=== PATIENT | male | born 1985 | race Caucasian/White ===

== ENCOUNTER 2021-01-10 19:11 | Inpatient (IN) | payer OTHER, MEDICAID, SELFPAY ==
[2021-01-10 19:16] VITALS: BP 130/91; PULSE 97; RESP 14; TEMP 37.2; O2SAT 99
--- NOTE | 2021-01-10 19:45 | ED.FEVER ---
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 He said when he was previously diagnosed with thrush he was treated with nystatin symptoms resolved and then he started having right-sided neck swelling which has gotten worse today. He was started on Augmentin yesterday he has taken a total of 3 doses He has had fevers chills and sweats. He now is having some difficulty swallowing which brought him to the emergency department today but does not appear in any acute respiratory distress. He denies any known history of each eye the stating that he has been tested for that in the past and been negative. He does have some poor dentition and thinks that maybe there was an infection there. He has had fever and chills ongoing for the last few days as well. Related Data Home Medications Medication Instructions Recorded Confirmed amoxicillin 875 mg-potassium 1 tab PO Q12HR 01/10/21 01/10/21 clavulanate 125 mg tablet buprenorphine 8 mg-naloxone 2 mg 1 tab SUBLINGUAL BID 01/10/21 01/10/21 sublingual tablet Allergies Allergy/AdvReac Type Severity Reaction Status Date / Time No Known Drug Allergies Allergy Verified 01/10/21 19:20 Review of Systems Review of Systems Narrative: GENERAL: Denies chills, fatigue, malaise, fever, sweats, travel HEENT: See HPI RESPIRATORY: Denies dyspnea, cough, wheezing, hemoptysis, sputum. CARDIOVASCULAR: Denies chest pain, palpitations, orthopnea, edema GASTROINTESTINAL: Denies nausea, vomiting, abdominal pain, diarrhea, constipation, melena. : Denies dysuria, frequency, incontinence, hematuria, urinary retention, flank pain. MUSCULOSKELETAL: Denies weakness, joint pain, or bony pain SKIN: No rash, no erythema, no pruritus NEUROLOGIC: Denies weakness, dizziness, headache, numbness, change in speech, confusion PSYCHIATRIC: No concerning psychosocial issues. 12 point review of systems is negative except for those stated above and HPI Patient History Medical History Broken teeth Dental caries History of intravenous drug use in remission History of tobacco abuse Surgical History (Updated 01/11/21 @ 01:23 [facility] History of appendectomy Family History (Updated 01/11/21 @ 01:24 by ALIS FranklinANTHONY) Other Adopted Family history unknown Social History household members: spouse Smoking Status: Former smoker Smoking Status: Former smoker alcohol intake frequency: 0-2 drinks per day Substance Use Type: former substance user Exam Initial Vital Signs Initial Vital Signs: Vital Signs Temperature 98.9 F 01/10/21 19:16 Pulse Rate 97 H 01/10/21 19:16 Respiratory Rate 14 01/10/21 19:16 Blood Pressure 130/91 H 01/10/21 19:16 Pulse Oximetry 99 01/10/21 19:16 GENERAL: Alert thin 35-year-old male no acute distress HEENT: Head atraumatic,EOMI, pupils reactive, face symmetric, moist mucous membranes PHARYNX: No erythema no tonsillar swelling or exudate managing secretions. He does have over right neck swelling no fluctuation. cervical lymphadenopathy is present CARDIOVASCULAR: Regular rate and rhythm without murmurs, rubs or gallops. RESPIRATORY: Breath sounds equal bilaterally, no wheezes rales or rhonchi. ABDOMEN: Soft, nontender. Normoactive bowel sounds all 4 quadrants. No guarding or rebound. EXTREMITIES: Normal range of motion, no clubbing or edema. Neurovascularly intact NEUROLOGICAL: Alert and oriented x4.Normal gait and speech. SKIN: Warm, dry, no laceration, no petechiae, no rashes or lesions. Course Orders Ordered: ED Orders 01/10/21 22:43 Urine Microscopic Stat Acetaminophen (Acetaminophen 325 Mg Tablet) 650 mg PO Q6HR PRN PRN Reason: Fever/Mild Pain (1-3) Al Hydrox/Mg Hydrox/Simethicone (Mag Hydrox/Alum/Simeth 30 Ml Udc) 30 ml PO Q6HR PRN PRN Reason: Dyspepsia Buprenorphine/Naloxone (Buprenorphine/Naloxone 8mg/2mg 1 Tab) 1 tab SL BID THERESA Calcium Carbonate (Calcium Carbonate 500 Mg Tab) 1,000 mg PO Q4HR PRN PRN Reason: Dyspepsia Heparin Sodium (Porcine) (Heparin 5,000 Unit/Ml Vial) 5,000 unit SUBCUT BID THERESA Lactated Ringer's (Lactated Ringers) 1,000 mls @ 100 mls/hr IV CONT THERESA Last Admin: 01/11/21 00:50 Dose: 100 mls/hr Documented by: SHARON Piperacillin Sod/Tazobactam (Sod 3.375 gm/ Sodium Chloride) 100 mls @ 25 mls/hr IV Q8H THERESA Vancomycin HCl (Vancomycin) 1,000 mg in 200 mls @ 200 mls/hr IV Q12H THERESA Ketorolac Tromethamine (Ketorolac 10 Mg Tablet) 10 mg PO Q6HR PRN PRN Reason: Pain, Moderate (4-6) Stop: 01/15/21 23:47 Last Admin: 01/11/21 01:02 Dose: 10 mg Documented by: SHARON Naloxone HCl (Naloxone 0.4 Mg/Ml Vial) 0.2 mg IV Q2MIN PRN PRN Reason: Opiate Reversal Ondansetron HCl (Ondansetron 4 Mg/2 Ml Inj) 4 mg IV Q8HR PRN PRN Reason: Nausea And Vomiting Discontinued Medications Buprenorphine/Naloxone (Buprenorphine/Naloxone 8mg/2mg 1 Tab) 1 tab SL NOW ONE Stop: 01/11/21 01:02 Last Admin: 01/11/21 01:08 Dose: 1 tab Documented by: SHARON Sodium Chloride (Normal Saline 0.9%) 1,000 mls @ 1,000 mls/hr IV BOLUS ONE Stop: 01/10/21 20:22 Last Infusion: 01/10/21 21:19 Dose: 0 mls/hr Documented by: Admin: 01/10/21 19:57 Dose: 1,000 mls/hr Documented by: EMLIE Ampicillin Sodium/Sulbactam (Sodium 3 gm/ Sodium Chloride) 100 mls @ 100 mls/hr IV NOW ONE Stop: 01/10/21 20:30 Last Infusion: 01/10/21 21:43 Dose: 0 mls/hr Documented by: Admin: 01/10/21 20:38 Dose: 100 mls/hr Documented by: EMILE Vancomycin HCl (Vancomycin) 750 mg in 150 mls @ 150 mls/hr IV NOW ONE Stop: 01/10/21 22:43 Last Infusion: 01/11/21 00:21 Dose: 0 mls/hr Documented by: Admin: 01/10/21 22:08 Dose: 150 mls/hr Documented by: LISBETH Piperacillin Sod/Tazobactam (Sod 3.375 gm/ Sodium Chloride) 100 mls @ 25 mls/hr IV Q8H [facility] Piperacillin Sod/Tazobactam (Sod 4.5 gm/ Sodium Chloride) 100 mls @ 200 mls/hr IV 0400 ONE Stop: 01/11/21 04:29 Last Admin: 01/11/21 04:23 Dose: 200 mls/hr Documented by: SHARON Vancomycin HCl (Vancomycin) 750 mg in 150 mls @ 150 mls/hr IV NOW ONE Stop: 01/11/21 01:59 Last Admin: 01/11/21 00:57 Dose: Not Given Documented by: SHARON Ketorolac Tromethamine (Ketorolac 30 Mg/Ml Vial) 15 mg IV NOW ONE Stop: 01/10/21 19:47 Last Admin: 01/10/21 19:57 Dose: 15 mg Documented by: EMILE Nystatin (Nystatin Susp 500,000 Unit/5 Ml Udc) 500,000 unit PO QID THERESA Last Admin: 01/11/21 00:58 Dose: Not Given Documented by: SHARON Vancomycin HCl (Vancomycin Per Pharmacy) 1 request MISC NOW ONE Stop: 01/10/21 23:59 Last Admin: 01/11/21 00:58 Dose: Not Given Documented by: SHARON Vital Signs Vital signs: Vital Signs - 8 hr 01/10/21 19:16 Temperature 98.9 F Pulse Rate 97 H Respiratory Rate 14 Blood Pressure 130/91 H Pulse Oximetry 99 MDM - Fever Lab Data Result diagrams: 01/10/21 19:40 01/10/21 19:40 Labs: Lab Results 01/10/21 01/10/21 01/10/21 Range/Units 19:40 19:40 19:40 WBC 19.8 H (4.5-11.0) X10^3/uL RBC 4.69 (4.5-5.9) X10^6/uL Hgb 13.3 L (13.5-17.5) g/dL Hct 40.4 L (41-53) % MCV 86.1 (80-100) fL MCH 28.3 (26-34) PG MCHC 32.9 (30-36) % RDW 12.7 (11.6-14.8) % Plt Count 303 (150-400) X10^3/uL Neut % (Auto) 65.6 (50-75) % Lymph % (Auto) 15.1 L (25-40) % [place] % (Auto) 17.5 H (3-14) % Eos % (Auto) 1.2 L (2-4) % Baso % (Auto) 0.6 (0-2) % Neut # (Auto) 72007 H (1509-8528) /uL Lymph # (Auto) 3000 (4040-7994) /uL [place] # (Auto) 3500 H (0-900) /uL Eos # (Auto) 200 (0-450) /uL Baso # (Auto) 100 (0-100) /uL Sodium 137 (137-145) mmol/L Potassium 4.0 (3.4-5.1) mmol/L Chloride 101 (98-107) mmol/L Carbon Dioxide 29 (22-32) mmol/L BUN 17 (9-20) mg/dL Creatinine 0.79 (0.66-1.25) mg/dL Estimated GFR > 60.0 (>60) mL/min BUN/Creatinine Ratio 21.5 (6-22) Glucose 100 (70-100) mg/dL Lactate 1.1 (0.7-2.1) mmol/L Calcium 8.9 (8.4-10.2) mg/dL Total Bilirubin 0.7 (0.2-1.3) mg/dL AST 31 (17-59) IU/L ALT 47 (<50) IU/L Alkaline Phosphatase 76 (38-126) U/L Total Protein 8.5 H (6.3-8.2) g/dL Albumin 3.9 (3.5-5.0) g/dL Globulin 4.6 H (1.7-4.1) g/dL Albumin/Globulin Ratio 0.8 L (1.0-2.8) Lipase 21 L (23-300) U/L Procalcitonin 0.10 (<0.5) ng/mL Urine RBC (0-5/HPF) Urine WBC (0-5/HPF) Urine Bacteria (None) Ur Culture Indicated? SARS-CoV-2 (PCR) (Negative) HIV 1&2 Ab/P24 Ag 4thGn (NEGATIVE) 01/10/21 01/10/21 01/10/21 Range/Units 19:40 19:45 22:43 WBC (4.5-11.0) X10^3/uL RBC (4.5-5.9) X10^6/uL Hgb (13.5-17.5) g/dL Hct (41-53) % MCV (80-100) fL MCH (26-34) PG MCHC (30-36) % RDW (11.6-14.8) % Plt Count (150-400) X10^3/uL Neut % (Auto) (50-75) % Lymph % (Auto) (25-40) % [place] % (Auto) (3-14) % Eos % (Auto) (2-4) % Baso % (Auto) (0-2) % Neut # (Auto) (4110-1769) /uL Lymph # (Auto) (4962-1054) /uL [place] # (Auto) (0-900) /uL Eos # (Auto) (0-450) /uL Baso # (Auto) (0-100) /uL Sodium (137-145) mmol/L Potassium (3.4-5.1) mmol/L Chloride (98-107) mmol/L Carbon Dioxide (22-32) mmol/L BUN (9-20) mg/dL Creatinine (0.66-1.25) mg/dL Estimated GFR (>60) mL/min BUN/Creatinine Ratio (6-22) Glucose (70-100) mg/dL Lactate (0.7-2.1) mmol/L Calcium (8.4-10.2) mg/dL Total Bilirubin (0.2-1.3) mg/dL AST (17-59) IU/L ALT (<50) IU/L Alkaline Phosphatase (38-126) U/L Total Protein (6.3-8.2) g/dL Albumin (3.5-5.0) g/dL Globulin (1.7-4.1) g/dL Albumin/Globulin Ratio (1.0-2.8) Lipase (23-300) U/L Procalcitonin (<0.5) ng/mL Urine RBC None seen (0-5/HPF) Urine WBC None seen (0-5/HPF) Urine Bacteria None seen (None) Ur Culture Indicated? Cult not indicated SARS-CoV-2 (PCR) Negative (Negative) HIV 1&2 Ab/P24 Ag 4thGn Negative (NEGATIVE) Urine Dip Bedside Urine Glucose Negative Bedside Urine Bilirubin - Negative Bedside Urine Ketone - Negative Urine Specific [place] 1.005 Bedside Urine Occult Blood - Negative Bedside Urine pH 6.5 Bedside Urine Protein + 30 Bedside Urine Urobilinogen 2+ 4mg Bedside Urine Nitrite - Negative Bedside Urine Leukocytes - Negative Esterase Imaging Data CT soft tissue neck: Radiologist's Impression: PROCEDURE:? CT SOFT TISSUE NECK W CON ? INDICATIONS:? right sided neck swelling ? TECHNIQUE:? After the administration of intravenous contrast, 3.0 mm axial sections acquired from the sella to the aortic arch.? Additional oblique axial 3.0 mm sections acquired through the pharynx.? 3 mm thick coronal and sagittal reformats were generated.? For radiation dose reduction, the following was used:? automated exposure control.? ? COMPARISON:? None. ? FINDINGS:? Image quality:? Excellent.? ? Lymph nodes:? Reactive right sided level II and III cervical lymph node enlargement is present. ? Vessels:? Visualized vasculature appears patent.? ? Neck spaces:? There is submucosal low density within the right aspect of the oropharynx including the right tonsillar pillar hypopharynx, extending into the supraglottic airway. ?There is associated effacement of the right piriform sinus with involvement of the right false vocal cord.? There is effacement of the right lateral aspect of the vallecula.? There is associated moderate narrowing of the oropharyngeal and hypopharyngeal airway.? There is a peripherally enhancing fluid collection within the right superior neck, deep to the anterior aspect of the right sternocleidomastoid muscle, measuring roughly 25 mm, at the lateral aspect of the proximal external carotid artery.? This mass demonstrates extrinsic compression and severe narrowing of the adjacent internal jugular vein at its posterior aspect.? Moderate surrounding ill-defined T2 signal elevation is present, indicating cellulitis.? There is enlargement of the right sternocleidomastoid muscle. ? Glands:? Anterior deviation of the right submandibular gland secondary to the abscess at its posterior aspect.? The parotid and submandibular glands otherwise appear normal.? Thyroid gland is grossly unremarkable.? ? Miscellaneous:? Visualized brain and orbits appear normal.? Lung apices appear clear.? Superficial soft tissues appear normal. ? Bones:? No suspicious bony lesions.? Visualized sinuses and mastoids appear unremarkable. ? ? ? IMPRESSION:? 1. Right upper cervical abscess with surrounding cellulitis and involvement of the right sternocleidomastoid muscle.? There is extrinsic compression and severe narrowing of the adjacent right internal jugular vein. 2. Submucosal edema/cellulitis involving the right oropharynx, hypopharynx, and false vocal cord, with associated vallecular and piriform sinus involvement.? Moderate narrowing of the sameer pharyngeal and hypopharyngeal airway. ? ? ? Dictated by: Rosemary Moya M.D. on 01/10/2021 at 21:11 ? ? ECG Data Interpretation: Sinus rhythm rate 77 MN interval 152 QRS [address] changes MDM Narrative Medical decision making narrative: Patient obvious right-sided neck swelling but he does appear to be managing his secretions an airway seems to be intact. He does have leukocytosis of almost 20,000 but vitals are within normal limits and is not septic. 2154 Dr. Mac, ENT updated outpatient symptoms test results and CT scan report. Recommend it be drained if needed and he likely needs furtherantibiotics. Suggest patient may possibly doing it as an outpatient. He is happy to consult if needed. Patient does have significant neck abscess involving sternocleidomastoid and pushing on in jugular. At this time patient needs at least observation and IV antibiotics Terrence JIMENEZ updated on patient's symptoms test results ENT recommendations and happily accepts I do question patient's recent thrush infection and history of IVDA possible HIV, although patient denies. Discharge Plan Departure Patient Disposition: Admitted as Observation Clinical Impression: Cellulitis and abscess of neck Admit Date/Time: 01/10/21 23:36 Admit Provider: Yuliana Ocampo
--- NOTE | 2021-01-10 19:46 | DI.CT.S_ITS ---
PROCEDURE: CT SOFT TISSUE NECK W CON INDICATIONS: right sided neck swelling TECHNIQUE: After the administration of intravenous contrast, 3.0 mm axial sections acquired from the sella to the aortic arch. Additional oblique axial 3.0 mm sections acquired through the pharynx. 3 mm thick coronal and sagittal reformats were generated. For radiation dose reduction, the following was used: automated exposure control. COMPARISON: None. FINDINGS: Image quality: Excellent. Lymph nodes: Reactive right sided level II and III cervical lymph node enlargement is present. Vessels: Visualized vasculature appears patent. Neck spaces: There is submucosal low density within the right aspect of the oropharynx including the right tonsillar pillar hypopharynx, extending into the supraglottic airway. There is associated effacement of the right piriform sinus with involvement of the right false vocal cord. There is effacement of the right lateral aspect of the vallecula. There is associated moderate narrowing of the oropharyngeal and hypopharyngeal airway. There is a peripherally enhancing fluid collection within the right superior neck, deep to the anterior aspect of the right sternocleidomastoid muscle, measuring roughly 25 mm, at the lateral aspect of the proximal external carotid artery. This mass demonstrates extrinsic compression and severe narrowing of the adjacent internal jugular vein at its posterior aspect. Moderate surrounding ill-defined T2 signal elevation is present, indicating cellulitis. There is enlargement of the right sternocleidomastoid muscle. Glands: Anterior deviation of the right submandibular gland secondary to the abscess at its posterior aspect. The parotid and submandibular glands otherwise appear normal. Thyroid gland is grossly unremarkable. Miscellaneous: Visualized brain and orbits appear normal. Lung apices appear clear. Superficial soft tissues appear normal. Bones: No suspicious bony lesions. Visualized sinuses and mastoids appear unremarkable. IMPRESSION: 1. Right upper cervical abscess with surrounding cellulitis and involvement of the right sternocleidomastoid muscle. There is extrinsic compression and severe narrowing of the adjacent right internal jugular vein. 2. Submucosal edema/cellulitis involving the right oropharynx, hypopharynx, and false vocal cord, with associated vallecular and piriform sinus involvement. Moderate narrowing of the sameer pharyngeal and hypopharyngeal airway. Dictated by: Rosemary Moya M.D. on 01/10/2021 at 21:11 Approved by: Rosemary Moya M.D. on 01/10/2021 at 21:16
[2021-01-10] MEDS: KETOROLAC 30 MG/ML VIAL 15 MG IV (19:57)
[2021-01-10] MEDS: SODIUM CHLORIDE 0.9% 1,000 ML 1000 ML IV (19:57)
[2021-01-10 20:06] LABS: Add Manual Diff / Slide Review NO; Basophils Absolute Auto 100 /uL (0-100); Basophils Percent Auto 0.6 % (0-2); Eosinophils Absolute Auto 200 /uL (0-450); Eosinophils Percent Auto 1.2 % (2-4); Hematocrit 40.4 % (41-53); Hemoglobin 13.3 g/dL (13.5-17.5); Lymphocytes Absolute Auto 3000 /uL (1100-4500); Lymphocytes Percent Auto 15.1 % (25-40); Mean Corpuscular HGB Conc 32.9 % (30-36); Mean Corpuscular Hemoglobin 28.3 PG (26-34); Mean Corpuscular Volume 86.1 fL (80-100); Monocytes Absolute Auto 3500 /uL (0-900); Monocytes Percent Auto 17.5 % (3-14); Neutrophils Absolute Auto 13000 /uL (1500-7000); Neutrophils Percent Auto 65.6 % (50-75); Platelet Count 303 X10^3/uL (150-400); Red Blood Cell Count 4.69 X10^6/uL (4.5-5.9); Red Cell Distribution Width 12.7 % (11.6-14.8); White Blood Cell Count 19.8 X10^3/uL (4.5-11.0)
[2021-01-10 20:19] LABS: Lactate (Lactic Acid) 1.1 mmol/L (0.7-2.1)
[2021-01-10 20:22] LABS: Alanine Aminotransferase 47 IU/L (<50); Albumin 3.9 g/dL (3.5-5.0); Albumin Globulin Ratio 0.8 (1.0-2.8); Alkaline Phosphatase 76 U/L (38-126); Aspartate Aminotransferase 31 IU/L (17-59); BUN Creatinine Ratio 21.5 (6-22); Bilirubin Total 0.7 mg/dL (0.2-1.3); Blood Urea Nitrogen 17 mg/dL (9-20); Calcium 8.9 mg/dL (8.4-10.2); Carbon Dioxide 29 mmol/L (22-32); Chloride 101 mmol/L (98-107); Estimated Glomerular Filt Rate > 60.0 mL/min (>60); Globulin 4.6 g/dL (1.7-4.1); Glucose 100 mg/dL (70-100); HEMOLYSIS < 15 (0-50); Lipase 21 U/L (23-300); Sodium 137 mmol/L (137-145); Total Protein 8.5 g/dL (6.3-8.2)
[2021-01-10] MEDS: AMPICILLIN/SULBACTAM 3 GM 3 GM in SODIUM CHLORIDE 0.9% 100 ML IV (20:38)
[2021-01-10 21:47] LABS: COVID19 - ADMIT (NP swab/PCR) Negative (Negative)
[2021-01-10] MEDS: VANCOMYCIN 750 MG/150 ML PIGGYBACK 150 MG IV (22:08)
[2021-01-10 23:00] LABS: Bacteria Urine None Seen; RBC Urine None Seen (0-5/HPF); WBC Urine None Seen (0-5/HPF)
[2021-01-10 23:42] VITALS: O2SAT 99
[2021-01-10 23:53] LABS: Culture Indicated Urine Cult Not Indicated
[2021-01-11] VITALS (13 sets, daily range): BP systolic 107–124; BP diastolic 50–67; PULSE 64–75; RESP 14–18; TEMP 36.6–37.4; O2SAT 97–99; BMI 19.3
--- NOTE | 2021-01-11 00:02 | PM.HP.1 ---
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 Patient reports that the right side of his neck began becoming sore approximately 1 week ago and then 2 days ago it ?blew up. He had a recent diagnosis of thrush he was treated with nystatin symptoms resolved and it resolved. When the [facility] ? He had fevers chills and sweats through the night, last night but none at this time.? He currently reports pressure and pain discomfort to his right side of the jaw, and pressure on the outer canthus of the right eye, and some difficulty swallowing but does not appear to be in any respiratory distress at this time. Patient reports poor dentition and has multiple broken teeth on the lower right side of the jaw. He also has had issues with a a submandibular abscess prior on the left-hand side related to dental infections, but nothing this bad. Patient denies Chest pain, shortness of breath, abdominal pain, nausea, vomiting, pain with eye movement or pain /pressure behind the eyes. Patient did stop smoking 3 years ago and continues to use nicotine salt packages orally. Patient denies HIV infection, or immunocompromise disease. Patient's vitals are stable, in no respiratorydistress upon admit afebrile BP 130/91, HR 97, R 14, O2 saturation 99% on room air. Patient does have an elevated WBC 19.8, neutrophils 1300, HGB 13.3, HCT 40.4. Patient's chemistries, liver enzymes, U/A, lipase and procalcitonin are all within normal limits. CT of the soft tissue the neck demonstrated right upper cervical abscess with surrounding cellulitis and involvement of the right sternocleidomastoid muscle.? There is extrinsic compression and severe narrowing of the adjacent right internal jugular vein. And submucosal edema/cellulitis involving the right oropharynx, hypopharynx, and false vocal cord, with associated vallecular and piriform sinus involvement.? Moderate narrowing of the oropharyngeal and hypopharyngeal airway. Patient admitted for right neck abscess with cellulitis, and submucosal edema with risk of airway compromise. Patient History Medical History Broken teeth Dental caries History of intravenous drug use in remission History of tobacco abuse Surgical History (Updated 01/11/21 @ 01:23 by ALIS Franklin-ANTHONY) History of appendectomy Family & Social History Family History (Updated 01/11/21 @ 01:24 by PAIGE Franklin) Other Adopted Family history unknown Safety & Behavioral: Feels Safe in Current Yes, patient lives with his on [address] and works at the local [employer]. Environment Been Physically Hurt or No Threatened By a Person Tobacco & Substance use: Smoking Status Former smoker Quit 2018 alcohol intake frequency 0-2 drinks per day Substance Use Type former substance user IV heroin- quit 2019 Meds Home Medications and Allergies Home Medications Medication Instructions Recorded Confirmed Type amoxicillin 875 mg-potassium 1 tab PO Q12HR 01/10/21 01/10/21 History clavulanate 125 mg tablet buprenorphine 8 mg-naloxone 2 mg 1 tab SUBLINGUAL BID 01/10/21 01/10/21 History sublingual tablet Allergies Allergy/AdvReac Type Severity Reaction Status Date / Time No Known Drug Allergies Allergy Verified 01/10/21 19:20 Review of Systems Review of Systems Narrative: All 12 point systems reviewed with the patient and are negative except otherwise documented. Exam Vital Signs (past 8 hours): - 01/10/21 19:16 Temperature 98.9 F Pulse Rate 97 H Respiratory Rate 14 Blood Pressure 130/91 H Pulse Oximetry 99 Oxygen Delivery Method Room Air Narrative Exam Narrative: General: Patient is a well-developed, well-nourished fit male, pleasant in no distress at this time. HEENT: Normocephalic, atraumatic, extraocular muscles intact, oral pharynx is clear and mucous membranes are moist without exudate. Neck: No erythema no tonsillar swelling. managing secretions.? He does have over right neck swelling, no fluctuation, positive right pre-auricular cervical lymphadenopathy, area is firm raised, tender to plapation, and warm to touch, without postauricular adenopathy. Patient's speech is clear and on and P dated, able to swallow and breathe without any distress. Nurse to outline area of inflammation to monitor distribution and progression. Chest: Normal AP diameter and contour without kyphoscoliosis, no nasal flaring, retractions, or tachypneic labored Lungs: Auscultation of all lung hanson are clear without adventitious sounds, wheezes, rhonchi, or rales. Cardio: S1 & S2 with regular rate and rhythm without murmur, rubs, or gallops, no carotid bruit, no cardiac pulsations present. Abdomen: Soft nontender, negative for organomegaly, or masses. Bowel sounds are present in all 4 quadrants without guarding or rebound, no CVA tenderness. Musculoskeletal: Muscle strength and tone are equal within normal limits, no deformity, crepitus, effusions, cyanosis, clubbing or edema present. Full range of motion intact radial and pedal pulses are normal. Skin: Warm dry and intact without rashes, ulcerations or petechiae. Neuro: Alert and orientated x3, strength is +5/5 in all extremities, sensation to touch intact, no gross deficits noted of cranial nerves. Psych: Patient has a well-kept appearance, appropriate affect, mental status attitude thought context and judgment are appropriate for age. Objective Labs Result Diagrams: 01/10/21 19:40 01/10/21 19:40 Labs: Laboratory Results - last 24 hr 01/10/21 01/10/21 01/10/21 19:40 19:40 19:40 WBC 19.8 H RBC 4.69 Hgb 13.3 L Hct 40.4 L MCV 86.1 MCH 28.3 MCHC 32.9 RDW 12.7 Plt Count 303 Neut % (Auto) 65.6 Lymph % (Auto) 15.1 L [place] % (Auto) 17.5 H Eos % (Auto) 1.2 L Baso % (Auto) 0.6 Neut # (Auto) 95657 H Lymph # (Auto) 3000 [place] # (Auto) 3500 H Eos # (Auto) 200 Baso # (Auto) 100 Sodium 137 Potassium 4.0 Chloride 101 Carbon Dioxide 29 BUN 17 Creatinine 0.79 Estimated GFR > 60.0 BUN/Creatinine Ratio 21.5 Glucose 100 Lactate 1.1 Calcium 8.9 Total Bilirubin 0.7 AST 31 ALT 47 Alkaline Phosphatase 76 Total Protein 8.5 H Albumin 3.9 Globulin 4.6 H Albumin/Globulin Ratio 0.8 L Lipase 21 L Procalcitonin 0.10 Urine RBC Urine WBC Urine Bacteria Ur Culture Indicated? SARS-CoV-2 (PCR) 01/10/21 01/10/21 19:45 22:43 WBC RBC Hgb Hct MCV MCH MCHC RDW Plt Count Neut % (Auto) Lymph % (Auto) [place] % (Auto) Eos % (Auto) Baso % (Auto) Neut # (Auto) Lymph # (Auto) [place] # (Auto) Eos # (Auto) Baso # (Auto) Sodium Potassium Chloride Carbon Dioxide BUN Creatinine Estimated GFR BUN/Creatinine Ratio Glucose Lactate Calcium Total Bilirubin AST ALT Alkaline Phosphatase Total Protein Albumin Globulin Albumin/Globulin Ratio Lipase Procalcitonin Urine RBC None seen Urine WBC None seen Urine Bacteria None seen Ur Culture Indicated? Cult not indicated SARS-CoV-2 (PCR) Negative Assessment & Plan Assessment & Plan narrative: Patient is a 35-year-old male with a history IV drug use, severe dental caries, brooken teeth, thrush, and tobacco abuse in remission x3 years, who presents with right-sided neck cervical abscess with surrounding cellulitis and a submucosal edema. 1. Neck right cervical abscess with surrounding cellulitis and submucosal edema, leukocytosis, acute, present on admission -WBC 19.8, neutrophils 1300, initial procalcitonin WNL -patient to be admitted for 24 hours of IV fluids and antibiotics if not improving request ENT consult. - ENT was consulted in ED by Dr. Barajas -no recommendations at this time but will consult if needed. -rule out type of infectious organism cover for Klebsiella pneumonia a.m., Staph coccus aureus, MRSA, Gram-negative Paxil a, and anaerobes. -blood cultures pending. -ordered vancomycin per pharmacy and Zosyn 3.375 q.8 hours -monitor for hyponatremia elevated CPK or AST -wells criteria score: 0, Sofa score: 0 -patient for observation, bedside swallow, vital signs q.4 hours, intake and output monitored Q shift, weight measure once, diet: fluids liquids if swallow negative, -IV fluids: LR at 100 cc/hour. Aspiration precautions -patient had a dose of Zosyn and vancomycin in the ED, ordered vancomycin per pharmacy and zosyn to cover above stated likely bacteria. Apply ice packs as tolerated, and monitor for airway compromise. -Consider pulse treatment of Oral prednisone 40mg x3 days- to help decrease inflammation -daily labs ordered CBC, Procalcitonin Qam -recommend follow-up with ENT and Dentist 2. History of IV drug use and tobacco abuse, not present on admission -a patient will be provided education regarding continued cessation IV drug use and tobacco abuse Code status: Full code Surrogate decision maker: Spouse Jack Mueller COVID PCR: Negative COVID vaccination: Unvaccinated DVT/VTE prophylaxis: Heparin 5000 units b.i.d. and SCDs Disposition: Estimated length of stay less than 2 minutes to receive IV fluids and IV antibiotics for 24 hours. I have utilized all available immediate resources to obtain, update, or review the patient's current medications. I confirmed that the patient's advanced care plan is present, Code status is documented and/or surrogate decision maker is listed in the patient's medical record. Time Spent With Patient Critical Care time: I spent a total of [] minutes of critical care time on this patient's care today; this time is exclusive of procedural time. Scores GCS [place] coma scale eye opening: Spontaneous [place] coma scale verbal response: Orientated [place] coma scale motor response: Obey commands [place] coma scale total score: 15
[2021-01-11] MEDS: LACTATED RINGERS 1,000 ML 100 ML IV ×2 (00:50→14:36)
[2021-01-11] MEDS: KETOROLAC 10 MG TABLET PO ×2 (01:02→14:35)
[2021-01-11 01:03] LABS: HIV 1 & 2 Ab/Ag 4th Gen Combo NEGATIVE (NEGATIVE)
[2021-01-11] MEDS: BUPRENORPHINE/NALOXONE 8MG/2MG 1 TAB SL ×3 (01:08→21:05)
[2021-01-11] MEDS: PIPERACILLIN/TAZO 4.5 GM in SODIUM CHLORIDE 0.9% 100 ML 200 ML IV (04:23)
[2021-01-11 07:05] LABS: Add Manual Diff / Slide Review NO; Basophils Absolute Auto 100 /uL (0-100); Basophils Percent Auto 0.4 % (0-2); Eosinophils Absolute Auto 300 /uL (0-450); Hematocrit 35.2 % (41-53); Hemoglobin 11.6 g/dL (13.5-17.5); Lymphocytes Absolute Auto 2400 /uL (1100-4500); Lymphocytes Percent Auto 16.6 % (25-40); Mean Corpuscular Hemoglobin 28.5 PG (26-34); Mean Corpuscular Volume 86.2 fL (80-100); Monocytes Absolute Auto 1900 /uL (0-900); Monocytes Percent Auto 13.4 % (3-14); Neutrophils Absolute Auto 9800 /uL (1500-7000); Neutrophils Percent Auto 67.6 % (50-75); Platelet Count 237 X10^3/uL (150-400); Red Blood Cell Count 4.09 X10^6/uL (4.5-5.9); Red Cell Distribution Width 12.6 % (11.6-14.8); White Blood Cell Count 14.5 X10^3/uL (4.5-11.0)
[2021-01-11 07:31] LABS: Procalcitonin 0.12 ng/mL (<0.5)
[2021-01-11] MEDS: PIPERACILLIN/TAZO 3.375 GM in SODIUM CHLORIDE 0.9% 100 ML 25 ML IV ×2 (07:57→16:12)
[2021-01-11] MEDS: HEPARIN 5,000 UNIT/ML VIAL 5000 UNIT SUBCUT ×2 (08:01→21:05)
--- NOTE | 2021-01-11 09:22 | CM.DANOTE ---
DCP: Case received, EMR reviewed and met with patient. Introduced self and role. Was able to obtain information regarding some of patient's history and living situation. DCP assessment completed with information currently available. Patient is a 35 year old male who admitted yesterday evening to the care of the hospitalist team. PCP: Dr. Jorgito Eduardo. Payer: confirmed: P [employer]. Patient came to the hospital via private vehicle secondary to having some swelling to left side of his neck, with some difficulty swallowing. Patient had been treated prior with oral antibiotics, and developed thrush. He started having some difficulty swallowing, and came to the ER. Patient holds current diagnosis of right upper cervical abscess with cellulitis. He is currently being treated with IV ABO. Patient also has history of IV drug use, and has not used for 3 years. He is on suboxone. Met with patient in his room. He was sitting up in bed, alert and oriented, pleasant. Confirmed he has been clean for 3 years as far as drug use. He and his reside on [place]. He is independent, and is employed at [email or web address]. He confirmed that his provider is Dr. Eduardo on [place]. P: DCP to continue to follow. Patient should be able to go home when he is medically stable. Rita Conrad RN/Communication And Outreach Manager
[2021-01-11] MEDS: VANCOMYCIN 1,000 MG/200 ML PIGGYBACK 200 MG IV ×3 (09:32→23:53)
[2021-01-11] MEDS: ACETAMINOPHEN 325 MG TABLET 650 MG PO (09:47)
--- NOTE | 2021-01-11 13:26 | PM.PN.1 ---
Subjective Subjective Date Patient Seen: 01/11/21 Time Patient Seen: 08:00 Interval history: Today he states he has not noted significant change in the swelling of his neck since being admitted here. He has slight difficulty swallowing, but food and water can still pass. He has no difficulty breathing. Exam Vital Signs (past 8 hours): - 01/11/21 06:40 01/11/21 06:51 01/11/21 08:05 Temperature 99.3 F 97.8 F Pulse Rate 68 67 Respiratory Rate 16 17 Blood Pressure 108/50 L 113/66 Pulse Oximetry 98 98 97 01/11/21 10:00 01/11/21 12:00 Temperature 98.3 F Pulse Rate 66 Respiratory Rate 16 Blood Pressure 110/57 L Pulse Oximetry 97 98 Oxygen Delivery Method Room Air Oxygen Flow Rate 0 Narrative Exam Narrative: General:?no acute distress HEENT:? moist mucous membranes, missing teeth on the right, other teeth with caries, Neck: No erythema, he does have right neck swelling, fimly reased and tender to palpation, speech clear, swallowing normally, Lungs:? clear bilaterally with no increased work of breathing Cardio:? reglar rate and rhythm with no murmurs Abdomen:? Soft nontender, nondistended, no organomegaly Objective Labs Result Diagrams: 01/11/21 06:34 01/10/21 19:40 Labs: Laboratory Results - last 24 hr 01/10/21 01/10/21 01/10/21 19:40 19:40 19:40 WBC 19.8 H RBC 4.69 Hgb 13.3 L Hct 40.4 L MCV 86.1 MCH 28.3 MCHC 32.9 RDW 12.7 Plt Count 303 Neut % (Auto) 65.6 Lymph % (Auto) 15.1 L [place] % (Auto) 17.5 H Eos % (Auto) 1.2 L Baso % (Auto) 0.6 Neut # (Auto) 46640 H Lymph # (Auto) 3000 [place] # (Auto) 3500 H Eos # (Auto) 200 Baso # (Auto) 100 Sodium 137 Potassium 4.0 Chloride 101 Carbon Dioxide 29 BUN 17 Creatinine 0.79 Estimated GFR > 60.0 BUN/Creatinine Ratio 21.5 Glucose 100 Lactate 1.1 Calcium 8.9 Total Bilirubin 0.7 AST 31 ALT 47 Alkaline Phosphatase 76 Total Protein 8.5 H Albumin 3.9 Globulin 4.6 H Albumin/Globulin Ratio 0.8 L Lipase 21 L Procalcitonin 0.10 Urine RBC Urine WBC Urine Bacteria Ur Culture Indicated? SARS-CoV-2 (PCR) HIV 1&2 Ab/P24 Ag 4thGn 01/10/21 01/10/21 01/10/21 19:40 19:45 22:43 WBC RBC Hgb Hct MCV MCH MCHC RDW Plt Count Neut % (Auto) Lymph % (Auto) [place] % (Auto) Eos % (Auto) Baso % (Auto) Neut # (Auto) Lymph # (Auto) [place] # (Auto) Eos # (Auto) Baso # (Auto) Sodium Potassium Chloride Carbon Dioxide BUN Creatinine Estimated GFR BUN/Creatinine Ratio Glucose Lactate Calcium Total Bilirubin AST ALT Alkaline Phosphatase Total Protein Albumin Globulin Albumin/Globulin Ratio Lipase Procalcitonin Urine RBC None seen Urine WBC None seen Urine Bacteria None seen Ur Culture Indicated? Cult not indicated SARS-CoV-2 (PCR) Negative HIV 1&2 Ab/P24 Ag 4thGn Negative 01/11/21 01/11/21 06:34 06:34 WBC 14.5 H RBC 4.09 L Hgb 11.6 L Hct 35.2 L MCV 86.2 MCH 28.5 MCHC 33.0 RDW 12.6 Plt Count 237 Neut % (Auto) 67.6 Lymph % (Auto) 16.6 L [place] % (Auto) 13.4 Eos % (Auto) 2.0 Baso % (Auto) 0.4 Neut # (Auto) 9800 H Lymph # (Auto) 2400 [place] # (Auto) 1900 H Eos # (Auto) 300 Baso # (Auto) 100 Sodium Potassium Chloride Carbon Dioxide BUN Creatinine Estimated GFR BUN/Creatinine Ratio Glucose Lactate Calcium Total Bilirubin AST ALT Alkaline Phosphatase Total Protein Albumin Globulin Albumin/Globulin Ratio Lipase Procalcitonin 0.12 Urine RBC Urine WBC Urine Bacteria Ur Culture Indicated? SARS-CoV-2 (PCR) HIV 1&2 Ab/P24 Ag 4thGn PFSH Medical History Broken teeth Dental caries History of intravenous drug use in remission History of tobacco abuse Surgical History (Updated 01/11/21 @ 01:23 by PAIGE Franklin) History of appendectomy Family History (Updated 01/11/21 @ 01:24 by PAIGE Franklin) Other Adopted Family history unknown Social History household members: spouse Smoking Status: Former smoker Assessment & Plan Assessment & Plan narrative: Mr. Gonzalez is a 35M with PMH of IVDU, dental caries, thrush, former tobacco abuse who presents with right sided neck pain and swelling found to have right neck cellulitis and abscess. 5-year-old male with a history IV drug use, severe dental caries, brooken teeth, thrush, and tobacco abuse in remission x3 years, who presents with right-sided neck cervical abscess with surrounding cellulitis and a submucosal edema. 1. Neck right cervical abscess with surrounding cellulitis and submucosal edema, leukocytosis, acute, present on admission -WBC 19.8, neutrophils 1300, initial procalcitonin WNL -patient to be admitted for 24 hours of IV fluids and antibiotics -monitor closely and if not improving with antibiotics, ENT consult -blood cultures pending. -ordered vancomycin per pharmacy and Zosyn 3.375 q.8 hours 2. History of IV drug use and tobacco abuse, not present on admission -a patient will be provided education regarding continued cessation IV drug use and tobacco abuse Time Spent With Patient Critical Care time: I spent a total of [] minutes of critical care time on this patient's care today; this time is exclusive of procedural time.
[2021-01-11] MEDS: DEXAMETHASONE 10 MG/ML VIAL IV (14:35)
--- NOTE | 2021-01-11 14:50 | PC.NURSE ---
A&Ox4. VSS. Pain 4/10 in throat and right jaw. Given PRN tylenol and toradol which improve pain to 2/10. Erythema of right jaw and neck outlined to determine changes in swelling. LR running at 100. Independent in room. Calls appropriately. Full liquid diet. Call light within reach, bed low.
[2021-01-12] VITALS (22 sets, daily range): BP systolic 91–127; BP diastolic 38–73; PULSE 48–73; RESP 8–18; TEMP 35.8–36.8; O2SAT 94–100
[2021-01-12] MEDS: PIPERACILLIN/TAZO 3.375 GM in SODIUM CHLORIDE 0.9% 100 ML 25 ML IV ×4 (01:09→21:14)
[2021-01-12 05:02] LABS: Hematocrit 41.6 % (41-53); Hemoglobin 13.9 g/dL (13.5-17.5); Mean Corpuscular HGB Conc 33.4 % (30-36); Mean Corpuscular Hemoglobin 28.6 PG (26-34); Mean Corpuscular Volume 85.6 fL (80-100); Platelet Count 230 X10^3/uL (150-400); Red Blood Cell Count 4.87 X10^6/uL (4.5-5.9); Red Cell Distribution Width 12.6 % (11.6-14.8); White Blood Cell Count 14.3 X10^3/uL (4.5-11.0)
[2021-01-12 05:54] LABS: BUN Creatinine Ratio 15.3 (6-22); Blood Urea Nitrogen 9 mg/dL (9-20); Calcium 9.5 mg/dL (8.4-10.2); Carbon Dioxide 17 mmol/L (22-32); Chloride 112 mmol/L (98-107); Estimated Glomerular Filt Rate > 60.0 mL/min (>60); Glucose 134 mg/dL (70-100); HEMOLYSIS < 15 (0-50); Potassium 4.6 mmol/L (3.4-5.1); Sodium 138 mmol/L (137-145)
--- NOTE | 2021-01-12 07:12 | DI.CT.S_ITS ---
PROCEDURE: CT SOFT TISSUE NECK W CON INDICATIONS: eval for improvement on cellulitis and abscess from 01/10 TECHNIQUE: After the administration of intravenous contrast, 3.0 mm axial sections acquired from the sella to the aortic arch. Additional oblique axial 3.0 mm sections acquired through the pharynx. 3 mm thick coronal and sagittal reformats were generated. For radiation dose reduction, the following was used: automated exposure control. COMPARISON: [facility], CT, CT SOFT TISSUE NECK W CON, 01/10/2021, 20:45. FINDINGS: Image quality: Excellent. Lymph nodes: No enlarged lymph nodes seen throughout the neck. Vessels: Visualized vasculature appears patent. Neck spaces: Intramuscular abscess within the right superior anterior sternocleidomastoid measures 1.6 x 1.6 cm, (36), previously 1.7 x 1.4 cm on 01/10/2021. Overall this is not felt to be significantly changed in size. There is surrounding hyperemia and narrowing of the right internal jugular vein. No filling defect is identified in the right IJ. Hypodensity at the right oropharynx and hypopharynx is less conspicuous compared to recent CT, (35). Right piriform sinus pooling is improved. No new or enlarging fluid collection. Glands: The parotid and submandibular glands appear normal. Thyroid gland is unremarkable. Miscellaneous: Visualized brain and orbits appear normal. Stable pleural apical scarring. Superficial soft tissues appear normal. Bones: No suspicious bony lesions. Visualized sinuses and mastoids appear unremarkable. IMPRESSION: 1. Small right sternocleidomastoid abscess is not significantly changed. Similar compression at the right IJ. No filling defect identified. 2. Right oropharynx/hypopharynx edema or trace fluid is less conspicuous and likely improving. 3. Improved piriformis sinus pooling. Dictated by: Mohan Soto M.D. on 01/12/2021 at 8:21 Approved by: Mohan Soto M.D. on 01/12/2021 at 8:38
[2021-01-12] MEDS: BUPRENORPHINE/NALOXONE 8MG/2MG 1 TAB SL ×2 (09:20→20:23)
[2021-01-12] MEDS: HEPARIN 5,000 UNIT/ML VIAL 5000 UNIT SUBCUT ×2 (09:20→20:23)
--- NOTE | 2021-01-12 11:26 | PM.PN.1 ---
Subjective Subjective Date Patient Seen: 01/12/21 Time Patient Seen: 08:00 Interval history: Today he says his voice is improving. Slight discomfort while swallowing. No respiratory distress. Still has significant neck swelling. Exam Vital Signs (past 8 hours): - 01/12/21 04:32 01/12/21 04:45 01/12/21 08:30 Temperature 97.2 F L 97.6 F Pulse Rate 55 L 68 Respiratory Rate 18 18 Blood Pressure 127/68 123/54 L Pulse Oximetry 98 98 98 Oxygen Delivery Method Room Air Oxygen Flow Rate 0 Narrative Exam Narrative: General: no acute distress HEENT: moist mucous membranes, missing teeth on the right, other teeth with caries, Neck: No erythema, he does have right neck swelling but this is decreased, tender to palpation, speech clear, swallowing normally, Lungs: clear bilaterally with no increased work of breathing Cardio: regular rate and rhythm with no murmurs Abdomen: Soft nontender, nondistended, no organomegaly Objective Labs Result Diagrams: 01/12/21 04:35 01/12/21 04:35 Labs: Laboratory Results - last 24 hr 01/11/21 01/12/21 01/12/21 21:33 04:35 04:35 WBC 14.3 H RBC 4.87 Hgb 13.9 Hct 41.6 MCV 85.6 MCH 28.6 MCHC 33.4 RDW 12.6 Plt Count 230 Sodium 138 Potassium 4.6 Chloride 112 H Carbon Dioxide 17 L BUN 9 Creatinine 0.59 L Estimated GFR > 60.0 BUN/Creatinine Ratio 15.3 Glucose 134 H Calcium 9.5 Nasal Screen MRSA (PCR) Negative for mrsa [facility] Medical History Broken teeth Dental caries History of intravenous drug use in remission History of tobacco abuse Surgical History (Updated 01/11/21 @ 01:23 by PAIGE Franklin) History of appendectomy Family History (Updated 01/11/21 @ 01:24 by PAIGE Franklin) Other Adopted Family history unknown Social History household members: spouse Smoking Status: Former smoker Assessment & Plan Assessment & Plan narrative: Mr. Gonzalez is a 35M with PMH of IVDU, dental caries, thrush, former tobacco abuse who presents with right sided neck pain and swelling found to have right neck cellulitis and abscess. 5-year-old male with a history IV drug use, severe dental caries, brooken teeth, thrush, and tobacco abuse in remission x3 years, who presents with right-sided neck cervical abscess with surrounding cellulitis and a submucosal edema. 1. Neck right cervical abscess with surrounding cellulitis and submucosal edema, leukocytosis, acute, present on admission -WBC 19.8, neutrophils 1300, initial procalcitonin WNL -has been on broad spectrum antibiotics, and did get a dose on decardon -MRSA swab negative, dc vanco -continue zosyn -repeat CT showed improving edema, however unchanged size of abscess -ENT consult, plan for operative drainage of abscess -monitor closely and if not improving with antibiotics, ENT consult -blood cultures pending 2. History of IV drug use and tobacco abuse, not present on admission -remains sober for years Time Spent With Patient Critical Care time: I spent a total of [] minutes of critical care time on this patient's care today; this time is exclusive of procedural time.
--- NOTE | 2021-01-12 13:14 | PM.PREOP ---
Pre-operative Note Interval Note History & Physical reviewed/Exam performed by Physician: Yes Changes to H&P: No
--- NOTE | 2021-01-12 13:15 | PM.CN ---
History of Present Illness Consult details Date Patient Seen: 01/12/21 Time Patient Seen: 13:16 Chief complaint: Right deep neck abscess Reason for consult: Right deep neck abscess Requesting provider: Romulo Rojas Narrative: 35-year-old male with remote history of IV drug abuse with known mandibular dental issues [place] 2 [place] with a 3 day history of right painful, swollen neck, worsening over time. CT identified at least a 2 cm right deep neck abscess near the anterior border of the right SCM, presumably odontogenic in source with associated hypopharyngeal and laryngeal edema. Admitted to the hospitalist for IV antibiotics, consultation requested due to possible need for surgical intervention. He was begun on 20 mg Decadron last night, 8 mg q.8 hours with subjective marked improvement but no improvement radiographically. Some hoarseness developed until the steroids were begun with significant improvement, throat pain has improved as well but not resolved. Follow-up CT this morning showed significant improvement in the edema but a persistent at least 2 cm right deep neck abscess. No other ENT complaints. Meds Home Medications and Allergies Home Medications Medication Instructions Recorded Confirmed Type amoxicillin 875 mg-potassium 1 tab PO Q12HR 01/10/21 01/10/21 History clavulanate 125 mg tablet buprenorphine 8 mg-naloxone 2 mg 1 tab SUBLINGUAL BID 01/10/21 01/10/21 History sublingual tablet Allergies Allergy/AdvReac Type Severity Reaction Status Date / Time No Known Drug Allergies Allergy Verified 01/10/21 19:20 Review of Systems Review of Systems Narrative: Review of systems positive as in the HPI, otherwise negative Exam Vital Signs (past 8 hours): - 01/12/21 08:30 01/12/21 12:21 Temperature 97.6 F 97.8 F Pulse Rate 68 73 Respiratory Rate 18 17 Blood Pressure 123/54 L 122/72 Pulse Oximetry 99 98 Oxygen Delivery Method Room Air Oxygen Flow Rate 0 Narrative Exam Narrative: Well-developed well-nourished male in no acute distress voice is normal, tolerating secretions. Moderate erythema and edema of the right superior neck at the angle the mandible extending inferiorly but evidently significantly improved versus even last night. Carious right mandibular teeth, poor dentition overall. Objective Labs Result Diagrams: 01/12/21 04:35 01/12/21 04:35 Labs: Laboratory Results - last 24 hr 01/11/21 01/12/2101/12/21 21:33 04:35 04:35 WBC 14.3 H RBC 4.87 Hgb 13.9 Hct 41.6 MCV 85.6 MCH 28.6 MCHC 33.4 RDW 12.6 Plt Count 230 Sodium 138 Potassium 4.6 Chloride 112 H Carbon Dioxide 17 L BUN 9 Creatinine 0.59 L Estimated GFR > 60.0 BUN/Creatinine Ratio 15.3 Glucose 134 H Calcium 9.5 Nasal Screen MRSA (PCR) Negative for mrsa [facility] Medical History Broken teeth Dental caries History of intravenous drug use in remission History of tobacco abuse Surgical History History of appendectomy Family History Other Adopted Family history unknown Social History household members: spouse Tobacco & Substance Use Smoking Status: Former smoker Assessment & Plan Assessment & Plan narrative: Assessment: Right deep neck abscess, persistent despite medical therapy, presumed odontogenic source Plan: Following discussion of the material risks benefits complications and alternatives the patient elected to proceed with incision and drainage of right deep neck abscess under general anesthesia. Time Spent With Patient Critical Care time: I spent a total of [] minutes of critical care time on this patient's care today; this time is exclusive of procedural time.
--- NOTE | 2021-01-12 13:28 | P.OP_ITS ---
Operative Date/Time/Diagnoses Date of procedure: 01/12/21 Time of procedure: 14:35 Pre-op diagnosis: Right deep neck abscess, presumed odontogenic source Post-op diagnosis: same (Phlegmon/necrotic tissue without purulence) Procedure & Clinicians Procedure: Incision and drainage right deep neck abscess/phlegmon Same procedure as scheduled: Yes Indications: 35-year-old male with the above diagnosis incompletely managed with medical therapy presents for the above procedure. Following discussion of the material risks benefits complications and alternatives, he elected to proceed. Surgeon: Blayne Raines Account Processor: Troy Mac Anesthesia Type: General and Local Operative Notes Findings: 2-3 cm phlegmon cavity/necrotic tissue anterior and deep to mid border of SCM, no nan purulence. Cx taken. Specimen(s): other (Culture) Estimated Blood Loss (mL): 10 Procedure in detail: Following identification and confirmation of consent, the patient was brought to the operating room suite and placed in the supine position. General endotracheal anesthesia was administered and the table was turned right side out. A proposed transverse incision was marked in ink and widely infiltrated with 1% lidocaine 1 100,000 epinephrine. Following sterile prep and drape 15 blade incised the skin and subcutaneous tissue, and sharp and blunt dissection proceeded anterior and eventually deep to the SCM until the abscess cavity/phlegmon was entered, posterior to the posterior border of the visualized submandibular gland. Cx was taken but nearly absent purulence, some necrotic tissue. It was probed bluntly with a finger for any loculations and irrigated with Betadine and saline. A quarter-inch Katherine drain was placed deep into the wound and sutured in place. A fluff dressing and wrap was placed. The procedure was completed without known complication and he was extubated in the operating room taken to the recovery room in stable condition. Sponge and needle counts were correct. Operative assist was indicated due to the deep nature of the abscess and altered anatomy from the infectious process, in addition to the nearby neurovascular structures at risk. Post-operative Condition: stable Disposition: ICU Plan for aftercare: Change dressing as needed, DC home when stable on oral antibiotics, follow-up in 1 week for drain removal as outpatient
--- NOTE | 2021-01-12 13:36 | SUR.OPER ---
Supine on padded OR bed, head on pillow, arms secured on padded arm boards at <90 degrees abduction, legs uncrossed, safety belt at thigh, tape over blanket over lower legs.
[2021-01-12] MEDS: LACTATED RINGERS 1,000 ML 42 ML IV (13:39)
[2021-01-12] MEDS: ACETAMINOPHEN IV 1,000 MG/100 ML VIAL 400 MG IV (14:18)
[2021-01-12] MEDS: LIDOCAINE 1% W/EPI 20 ML INJ (14:23)
--- NOTE | 2021-01-12 14:45 | SUR.PHASEI ---
Received to PACU after general anesthesia. Oral airway in place. No further airway assistance required. Report from ZOHREH Andre and Dr Melendez.
--- NOTE | 2021-01-12 15:34 | SUR.PHASEI ---
Oral airway out at 1534. Pt remains sleepy, but arousable.
[2021-01-12] MEDS: KETOROLAC 10 MG TABLET PO (18:04)
[2021-01-12] MEDS: ACETAMINOPHEN 325 MG TABLET 650 MG PO (21:29)
--- NOTE | 2021-01-13 01:34 | PC.NURSE ---
Patient is alert and oriented. Breath sounds CTA with RA sat of 98%. HRR with rate of 58 bpm. Denies nausea. BT present and abdomen is soft; passing flatus. Denies dysuria, frequency or urgency with urination; using urinal. Is independent with mobility. Dressing to neck is CDI; norma drain intact. Denies any pain or difficulty swallowing. Reports broken teeth in right lower dentition. Refusing SCD's so reminded to ankle wave. Fall risk score is low.
[2021-01-13] MEDS: KETOROLAC 10 MG TABLET PO (03:54)
[2021-01-13 03:58] VITALS: BP 109/68; PULSE 56; RESP 18; TEMP 36.5; O2SAT 99
[2021-01-13 04:59] LABS: Hematocrit 35.4 % (41-53); Hemoglobin 11.6 g/dL (13.5-17.5); Mean Corpuscular HGB Conc 32.6 % (30-36); Mean Corpuscular Hemoglobin 28.2 PG (26-34); Mean Corpuscular Volume 86.6 fL (80-100); Platelet Count 289 X10^3/uL (150-400); Red Blood Cell Count 4.09 X10^6/uL (4.5-5.9); Red Cell Distribution Width 12.6 % (11.6-14.8); White Blood Cell Count 14.1 X10^3/uL (4.5-11.0)
[2021-01-13] MEDS: PIPERACILLIN/TAZO 3.375 GM in SODIUM CHLORIDE 0.9% 100 ML 25 ML IV (05:02)
[2021-01-13] MEDS: SODIUM CHLORIDE 0.9% FLUSH 10 ML IV ×2 (05:03→08:09)
[2021-01-13 05:15] LABS: BUN Creatinine Ratio 23.2 (6-22); Blood Urea Nitrogen 19 mg/dL (9-20); Calcium 8.6 mg/dL (8.4-10.2); Carbon Dioxide 25 mmol/L (22-32); Chloride 107 mmol/L (98-107); Estimated Glomerular Filt Rate > 60.0 mL/min (>60); Glucose 94 mg/dL (70-100); HEMOLYSIS < 15 (0-50); Potassium 3.7 mmol/L (3.4-5.1); Sodium 136 mmol/L (137-145)
[2021-01-13 08:00] VITALS: BP 116/63; PULSE 53; RESP 17; TEMP 36.2; O2SAT 100
[2021-01-13] MEDS: HEPARIN 5,000 UNIT/ML VIAL 5000 UNIT SUBCUT (08:08)
[2021-01-13] MEDS: BUPRENORPHINE/NALOXONE 8MG/2MG 1 TAB SL (08:08)
[2021-01-13] MEDS: ACETAMINOPHEN 325 MG TABLET 650 MG PO (08:08)
--- NOTE | 2021-01-13 10:57 | CM.DPC ---
DCP Discharge Home Per MD, pt is medically stable to d/c home today on oral medications and no identified barriers to discharge. Per RN, pt is comfortable with d/c home today and has priority boarding pass but needs ride to [facility] terminal for home with spouse on [place] and RN to call Crista heck to set up when pt's d/c pwk completed and timed around [facility] schedule. Plan: Patient to d/c home today back to [place] with spouse assist and no further SW needs at this time. MANUEL Skinner
--- NOTE | 2021-01-13 11:24 | PC.NURSE ---
Patient is ready for d/c to home. IV removed. Instructions given on medications, follow up appt, s/s of infection, s/s of stroke. [place] and taxi arrangements made. Pt taken down via w/c by [employer].
--- NOTE | 2021-01-13 19:32 | PM.DS.1 ---
History of Present Illness History of Present Illness Chief complaint: Right deep neck abscess Narrative: 5-year-old male with remote history of IV drug abuse with known mandibular dental issues [place] 2 [place] with a 3 day history of right painful, swollen neck, worsening over time. CT identified at least a 2 cm right deep neck abscess near the anterior border of the right SCM, presumably odontogenic in source with associated hypopharyngeal and laryngeal edema. Admitted to the hospitalist for IV antibiotics, consultation requested due to possible need for surgical intervention. He was begun on 20 mg Decadron last night, 8 mg q.8 hours with subjective marked improvement but no improvement radiographically. Some hoarseness developed until the steroids were begun with significant improvement, throat pain has improved as well but not resolved. Follow-up CT this morning showed significant improvement in the edema but a persistent at least 2 cm right deep neck abscess. No other ENT complaints. Discharge Providers Provider Date of admission: 01/10/21 23:36 Discharge Date: 01/13/21 Consults: 01/11/21 14:34 Consult to Physician Routine Comment: Consulting Provider: Troy Mac Reason for consultation: Neck abscess Has provider been notified: Yes Discharge provider: Deon Valentin MD Summary Hospital Course Discharge Diagnosis: 1. Right deep neck abscess, odontogenic source Hospital Course: Patient presented with neck cellulitis and abscess from presumed dental source. He was started on broad-spectrum antibiotics. ENT consulted and performed I&D in the OR. OR findings were of phlegmon/inflammatory mass that was nonpurulent. Drain was left in place to remove when he sees ENT in clinic in about 1 week. He is discharged on Augmentin. On day of exam, patient has improvement in neck swelling and redness. He is not having fever and he is swallowing normally. Status at Discharge Overall status at discharge: patient is progressing back to baseline Time Spent with Patient Time spent: Less than 30 minutes Exam Vital Signs (past 8 hours): Oxygen Delivery Method Room Air Oxygen Flow Rate 0 Objective Labs Result Diagrams: 01/13/21 04:30 01/13/21 04:30 Labs: Laboratory Results - last 24 hr 01/13/21 01/13/21 04:30 04:30 WBC 14.1 H RBC 4.09 L Hgb 11.6 L Hct 35.4 L MCV 86.6 MCH 28.2 MCHC 32.6 RDW 12.6 Plt Count 289 Sodium 136 L Potassium 3.7 Chloride 107 Carbon Dioxide 25 BUN 19 Creatinine 0.82 Estimated GFR > 60.0 BUN/Creatinine Ratio 23.2 H Glucose 94 Calcium 8.6 PFSH Medical History Broken teeth Dental caries History of intravenous drug use in remission History of tobacco abuse Surgical History History of appendectomy Family History Other Adopted Family history unknown Social History household members: spouse Smoking Status: Former smoker Discharge Plan Discharge Plan Patient Disposition: Home Discharge orders & Medications Prescriptions: New amoxicillin-pot clavulanate [Augmentin] 875-125 mg tablet 1 tab PO Q12H Qty: 14 RF: 0 Continued buprenorphine-naloxone 8-2 mg tablet, sublingual 1 tab SUBLINGUAL BID RF: 0 Medication counseling provided by Pharmacist: Yes Follow up/Referrals: Blayne Raines MD [Physician] - 01/21/21 11:40 am (01/21 @ 11:40 CHECK IN 11:25 W/DR RAINES IN [facility] ) Discharge Health Status Multidrug resistant organism: No MDRO Diet/Activity/Treatments Diet: Regular Visit Report/Discharge Packet Instructions: DI for Incision and Drainage
== END 2021-01-13 11:26 | disposition home or self-care (01) | DRG 317 ==
LOC: ED 19:34 → AC 23:37
PROVIDERS: Internal Medicine; Otolaryngology; Admitting Provider Nurse Practitioner Family; Emergency Provider Emergency Medicine; Referring Provider Emergency Medicine; Visit Provider Nurse Practitioner Family
PROC: 0K920ZZ Drainage of Right Neck Muscle, Open Approach (ICD-10-PCS; CPT 42700; principal; 2021-01-12 13:30)
DX: M60.08 Infective myositis, other site (principal); L03.221 Cellulitis of neck; K04.7 Periapical abscess without sinus; I96 Gangrene, not elsewhere classified; F11.21 Opioid dependence, in remission; Z87.891 Personal history of nicotine dependence; Z20.822 Contact with and (suspected) exposure to COVID-19
CPT/HCPCS: 36415; 70491; 80048; 80053; 81003; 81015; 83605; 83690; 84145; 85025; 85027; 87040; 87070; 87075; 87077; 87147; 87205; 87389; 87635; 87797; 93005; 94760; 96361; 96365; 96366; 96367; 96375; 99284; C9803; J0131; J0295; J0330; J1100; J1644; J1885; J2250; J2405; J2543; J2704; J3010; Q9967

== ENCOUNTER 2021-01-15 15:58 | Emergency (ER) | payer OTHER, MEDICAID, SELFPAY ==
[2021-01-11 01:13] VITALS: BMI 19.3
[2021-01-15 16:16] VITALS: BP 132/67; PULSE 90; RESP 22; TEMP 37.1; O2SAT 100
== END 2021-01-15 16:44 | disposition left against medical advice (07) ==
DX: R58 Hemorrhage, not elsewhere classified (principal)
CPT/HCPCS: 99281

== ENCOUNTER 2024-05-20 14:59 | Emergency (ER) | payer OTHER, SELFPAY ==
[2021-01-11 01:13] VITALS: BMI 19.3
[2024-05-20 15:25] VITALS: BP 119/68; PULSE 82; RESP 18; TEMP 36.6; O2SAT 97; BMI 24.0
--- NOTE | 2024-05-20 15:30 | DI.RAD.S_ITS ---
PROCEDURE: XR ANKLE RT MIN 3V INDICATIONS: Right ankle pain post fall increased pain on weight bearing. TECHNIQUE: 3 views of the ankle were acquired. COMPARISON: None. FINDINGS: Bones: No fractures or dislocations. Ankle mortise is normally aligned. No suspicious bony lesions. Soft tissues: No tibiotalar joint effusion. Achilles tendon appears normal. IMPRESSION: No acute bony abnormality or significant effusion. Dictated by: Leann Flowers M.D. on 05/20/2024 at 15:06 Approved by: Leann Flowers M.D. on 05/20/2024 at 15:07
--- NOTE | 2024-05-20 15:37 | ED_ITS ---
HPI - Extremity Injury (Lower) <Anali Douglass PA-C - Last Filed: 05/20/24 17:05> General Chief Complaint: Extremity Injury, Lower Stated Complaint: Ankle pain. Time Seen by Provider: 05/20/24 15:36 Source: patient Mode of arrival: Ambulatory History of Present Illness HPI Narrative: Mr. Gonzalez is a pleasant 38-year-old male with no reported past medical history who presents to the emergency department for right ankle pain. Patient was at home on [address] sitting on the arm of a reclining chair when his leg fell asleep and when he went to suddenly stand he felt and heard a sudden pop with pain in the right ankle. Pain is exacerbated by weight-bearing. He called 911 and EMS came to splint the leg. He took ibuprofen. Ankle is feeling much better since having it splinted and taking ibuprofen. He came to the ED in private car for further evaluation/x-ray. Describes pain and swelling on the lateral aspect of the right ankle with no other pain or injuries. No knee pain, no foot pain, no neck or back pain. He did stumble over but did not hit his head or lose consciousness. No numbness or tingling. Related Data Home Medications Medication Instructions Recorded Confirmed buprenorphine 8 mg-naloxone 2 mg 1 tab sublingual BID 01/10/21 01/10/21 sublingual tablet Previous Rx's Medication Instructions Recorded amoxicillin 875 mg-potassium 1 tab PO Q12H #14 tabs 01/13/21 clavulanate 125 mg tablet (Augmentin) Allergies Allergy/AdvReac Type Severity Reaction Status Date / Time No Known Drug Allergies Allergy Verified 01/12/21 13:40 Review of Systems <Anali Douglass PA-C - Last Filed: 05/20/24 17:05> Review of Systems ROS Unobtainable: All systems reviewed & are unremarkable except as noted in HPI and below Patient History <Anali Douglass PA-C - Last Filed: 05/20/24 17:05> Medical History Broken teeth Dental caries History of tobacco abuse History of intravenous drug use in remission Surgical History History of appendectomy Family History Other Adopted Family history unknown Social History household members: spouse Smoking Status: Former smoker Smoking Status: Former smoker alcohol intake frequency: 0-2 drinks per day Exam <Anali Douglsas PA-C - Last Filed: 05/20/24 17:05> Narrative Exam Narrative: GENERAL: 38 year old patient appears stated age. Well-developed patient, in no acute distress. HEAD: Atraumatic. Normocephalic. CARDIOVASCULAR: Regular rate and rhythm. Strong DP and PT pulse on the right foot. Brisk capillary refill on the toes of the right foot distal to the injury. RESPIRATORY: ?Nonlabored respirations. ?Speaking in clear, full sentences. ? EXTREMITIES: Right lower extremity splint removed. Swelling and ecchymosis on the lateral aspect of the right ankle/lateral malleolus region. Tenderness over this area. No medial malleolus pain. No dorsal or plantar foot pain. No rai or knee pain. NEURO: AOx3. ?Clear speech. ?Sensation intact to light touch on the dorsal and plantar aspect of the right foot. Initial Vital Signs Initial Vital Signs: Vital Signs Temperature 98 F 05/20/24 15:25 Pulse Rate 82 05/20/24 15:25 Respiratory Rate 18 05/20/24 15:25 Blood Pressure 119/68 05/20/24 15:25 Pulse Oximetry 97 05/20/24 15:25 Oxygen Delivery Method Room Air 05/20/24 15:25 <Marie Schafer MD - Last Filed: 05/20/24 18:27> Initial Vital Signs Initial Vital Signs: Vital Signs Temperature 98 F 05/20/24 15:25 Pulse Rate 82 05/20/24 15:25 Respiratory Rate 18 05/20/24 15:25 Blood Pressure 119/68 05/20/24 15:25 Pulse Oximetry 97 05/20/24 15:25 Oxygen Delivery Method Room Air 05/20/24 15:25 Course <Anali Douglass PA-C - Last Filed: 05/20/24 17:05> Orders Ordered: ED Orders 05/20/24 15:30 XR ankle RT min 3V Stat Vital Signs Vital signs: Vital Signs - 8 hr 05/20/24 15:25 05/20/24 16:50 Temperature 98 F Pulse Rate 82 Pulse Rate [Right Dorsalis Pedis] 72 Respiratory Rate 18 Blood Pressure 119/68 Pulse Oximetry 97 Oxygen Delivery Method Room Air <Marie Schafer MD - Last Filed: 05/20/24 18:27> Orders Ordered: ED Orders 05/20/24 15:30 XR ankle RT min 3V Stat Vital Signs Vital signs: Vital Signs - 8 hr 05/20/24 15:25 05/20/24 16:50 Temperature 98 F Pulse Rate 82 Pulse Rate [Right Dorsalis Pedis] 72 Respiratory Rate 18 Blood Pressure 119/68 Pulse Oximetry 97 Oxygen Delivery Method Room Air MDM - Extremity Injury (Lower) <Anali Douglass PA-C - Last Filed: 05/20/24 17:05> Medical Records Attestation: I reviewed the patient's medical records. Imaging Data Right Ankle: My Impression: On my independent interpretation there is no fracture of the lateral malleolus. Radiologist's Impression: PROCEDURE: XR ANKLE RT MIN 3V INDICATIONS: Right ankle pain post fall increased pain on weight bearing. TECHNIQUE: 3 views of the ankle were acquired. COMPARISON: None. FINDINGS: Bones: No fractures or dislocations. Ankle mortise is normally aligned. No suspicious bony lesions. Soft tissues: No tibiotalar joint effusion. Achilles tendon appears normal. IMPRESSION: No acute bony abnormality or significant effusion. [facility] Narrative Medical decision making narrative: 38-year-old male with no reported past medical history who presents to the emergency department for right ankle pain. Differential diagnosis includes but is not limited to ankle fracture, ankle sprain, ankle sprain, etc. On exam patient is in no acute distress, nontoxic-appearing, all vital signs within normal limits. EMS splint was removed revealing swollen right lateral malleolus. Some tenderness over this area otherwise no tenderness on the remainder of the ankle or foot. No other injuries. Ankle x-ray was obtained in triage. Patient denies the need for pain medication. Ankle x-ray reveals no acute bony abnormalities. Suspect injury to the calcaneofibular ligament or other ankle ligament. Patient was placed into a right orthopedic boot for support of right ankle sprain. He does not need crutches and instead is using a cane. Discussed ibuprofen/Tylenol, rice therapy, follow up with Orthopedics or primary care. Patient verbalized understanding of all information is agreeable to the plan. He ambulates steady with orthopedic boot and cane. He is stable for discharge home. Discharge Plan Departure Patient Disposition: Home Clinical Impression: Right ankle sprain Qualifiers: Encounter type: initial encounter Involved ligament of ankle: unspecified ligament Qualified Code(s): S93.401A - Sprain of unspecified ligament of right ankle, initial encounter Instructions: DI for Ankle Sprain Activity Restrictions/Additional Instructions: Today you were evaluated for right ankle pain. An x-ray was obtained of your ankle revealing no fractures however you have likely sprained the ligaments on the lateral aspect of your ankle. Please wear the walking boot and use a cane as needed. Please follow up with your primary care doctor and or an orthopedic doctor for further evaluation. Please use RICE therapy for your pain in addition to ibuprofen/acetaminophen. Rest the painful area. Ice the area of pain/swelling for at least 15 minutes, 4x a day. Compress the area of swelling using a brace, wrap, or splint if applied. Elevate the painful or swollen extremity by supporting it above the level of the heart with pillows when sitting or laying. Please take Ibuprofen (Motrin/Advil) or Acetaminophen (Tylenol) for pain. These are available over the counter. You may take Ibuprofen 600 mg every 8 hours with food for pain. You may also take Acetaminophen 650 mg every 4-6 hours for pain. Do not exceed 3000 mg of Tylenol a day as this can cause liver damage. Do not drink alcohol with either of these medications. Please follow up with your primary care doctor within the next 2-3 days for ER follow-up. (If you do not have a PCP you can call [phone]. ?to schedule an appointment with an [facility] Primary Care Provider) IF YOU DEVELOP ANY NEW OR WORSENING SYMPTOMS, RETURN TO THE ER! Please read the attached instructions, they highlight more specific treatments and interventions for you at home. Thank you for letting me participate in your care, Anali Douglass PA-C Prescriptions: No Action buprenorphine-naloxone 8-2 mg tablet, sublingual 1 tab SUBLINGUAL BID Patient Comments: Place ONE(1) tablet under the tongue TWO(2) times a day. Must last 4 weeks Release date 12/16/2020 amoxicillin-pot clavulanate [Augmentin] 875-125 mg tablet 1 tab PO Q12H Qty: 14 0RF Referrals: Edyta Charles ARNP [Primary Care Provider] - Stand Alone Forms: Patient Portal/API/Survey ED Sign-out <Marie Schafer MD - Last Filed: 05/20/24 18:27> Cosign ED Attending Cosignature Attestation: I was immediately available in the department for consultation throughout this patient's visit. Marie Schafer MD
[2024-05-20 16:50] VITALS: PULSE 72
== END 2024-05-20 17:05 | disposition home or self-care (01) ==
PROVIDERS: Emergency Provider Physician Assistant; PCP Nurse Practitioner Family
DX: S93.401A Sprain of unspecified ligament of right ankle, initial encounter (principal)
CPT/HCPCS: 73610; 99282; 99283